=== PATIENT | male | born 1935 | race Caucasian/White ===

== ENCOUNTER 2018-05-21 08:24 | Inpatient (IN) | payer MEDICAID, OTHER ==
[2018-05-21] MEDS ORDERED: Albuterol-Ipratrop 3 mg / 0.5 (3 ml) UD IH STA (08:47)
--- NOTE | 2018-05-21 08:58 | ED PDOC ---
HPI: SOB/CHF/COPD Time Seen by Provider: 05/21/18 08:36 Chief Complaint (Nursing): Shortness Of Breath Chief Complaint (Provider): Shortness Of Breath History Per: Patient History/Exam Limitations: no limitations Onset/Duration Of Symptoms: Days (3) Additional Complaint(s): 83 years old male with history of hypertension presents to ER for evaluation of shortness of breath associated with cough and productive white sputum onset 3 days. Patient was recently in [facility], where he had workup including CT abdomen and chest that revealed mass ascending colon and metastatic disease of lungs. No treatment was initiated at that time. PMD: Paul Flowers Past Medical History Reviewed: Historical Data, Nursing Documentation, Vital Signs Vital Signs: Last Vital Signs Temp 98.5 F 05/21/18 08:32 Pulse 108 H 05/21/18 08:32 Resp 18 05/21/18 08:32 BP 114/75 05/21/18 08:32 Pulse Ox 96 05/21/18 08:32 - Medical History PMH: HTN - Surgical History Surgical History: No Surg Hx - Family History Family History: States: Unknown Family Hx - Immunization History Hx Tetanus Toxoid Vaccination: Yes Hx Influenza Vaccination: Yes Hx Pneumococcal Vaccination: Yes - Allergies Allergies/Adverse Reactions: Allergies Allergy/AdvReac Type Severity Reaction Status Date / Time No Known Allergies Allergy Verified 05/21/18 08:40 Review of Systems ROS Statement: Except As Marked, All Systems Reviewed And Found Negative Respiratory: Positive for: Cough, Shortness of Breath, Sputum (white) Physical Exam - Reviewed Nursing Documentation Reviewed: Yes Vital Signs Reviewed: Yes - Physical Exam Appears: Positive for: Non-toxic, No Acute Distress Head Exam: Positive for: ATRAUMATIC, NORMOCEPHALIC Skin: Positive for: Normal Color, Warm, Dry Cardiovascular/Chest: Positive for: Regular Rate, Rhythm, Tachycardia Respiratory: Positive for: Rhonchi (scattered bilaterally), Wheezing (mild expiratory). Negative for: Respiratory Distress Gastrointestinal/Abdominal: Positive for: Normal Exam, Soft. Negative for: Tenderness, Mass (palpable) Extremity: Positive for: Normal ROM, Pedal Edema (2+ lower bilateral). Negative for: Calf Tenderness Neurologic/Psych: Positive for: Alert, Oriented (x3) - Laboratory Results Result Diagrams: 05/21/18 08:55 05/21/18 08:55 - ECG O2 Sat by Pulse Oximetry: 96 (RA) Pulse Ox Interpretation: Normal Medical Decision Making Medical Decision Making: Time: 846 Initial Plan: --CMP --CBC --Chest X-Ray --Albuterol 3 ml IH --Peak flow pre/post treatment 946 Chest X-Ray FINDINGS: LUNGS: Multifocal nodular infiltrates identified bilaterally suspicious for marked pneumonitis. Underlying masses are not excluded and follow-up chest CT is adv ised when feasible. PLEURA: No significant pleural effusion identified. No pneumothorax apparent. CARDIOVASCULAR: Normal. OSSEOUS STRUCTURES: No significant abnormalities. VISUALIZED UPPER ABDOMEN: Normal. OTHER FINDINGS: None. IMPRESSION: Multifocal nodular infiltrates may reflect pneumonia. Underlying neoplasm is not excluded bilaterally in follow-up chest CT is advised with contrast for added characterization. 0950 --Duplex Lower Extremity Vein Bilateral US 1059 Extremity US FINDINGS: COMMON FEMORAL VEIN: Right CFV: Unremarkable. Left CFV: Unremarkable. SUPERFICIAL FEMORAL VEIN: Right SFV: Unremarkable. Left SFV: Unremarkable. POPLITEAL VEIN: Right Popliteal: Unremarkable. Left Popliteal: Unremarkable. POSTERIOR TIBIAL VEIN: Right PTV: Unremarkable. Left PTV: Unremarkable. OTHER FINDINGS: None. IMPRESSION: No evidence of deep venous thrombosis. 1110 --CT Chest With Contrast --------- Scribe Attestation: Documented by Tressa Villa, acting as a scribe for Av Hall MD. Provider Scribe Attestation: All medical record entries made by the Scribe were at my direction and personally dictated by me. I have reviewed the chart and agree that the record accurately reflects my personal performance of the history, physical exam, medical decision making, and the department course for this patient. I have also personally directed, reviewed, and agree with the discharge instructions and disposition. 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
[2018-05-21] MEDS ORDERED: Albuterol-Ipratrop 3 mg / 0.5 (3 ml) UD ONE (09:02)
[2018-05-21 09:09] LABS: BASO # 0.1 K/uL (0.0-0.2); BASO % 0.9 % (0.0-2.0); EOS # 0.2 K/uL (0.0-0.7); EOS % 2.1 % (0.0-4.0); HEMOGLOBIN 10.8 g/dL (12.0-18.0); LYMPH # 1.1 K/uL (1.0-4.3); LYMPH % 10.6 % (20.0-40.0); MEAN CORPUSCULAR HEMOGLOBIN 28.3 pg (27.0-31.0); MEAN CORPUSCULAR HGB CONC 32.5 g/dL (33.0-37.0); MEAN PLATELET VOLUME 9.2 fl (7.2-11.7); MONO # 0.6 K/uL (0.0-0.8); MONO % 6.2 % (0.0-10.0); NEUT # 8.1 K/uL (1.8-7.0); NEUT % 80.2 % (50.0-75.0); RBC 3.82 Mil/uL (4.40-5.90); WHITE BLOOD COUNT 10.1 K/uL (4.8-10.8)
[2018-05-21 09:17] LABS: ALBUMIN 3.2 g/dL (3.5-5.0); CALCIUM 9.4 mg/dL (8.4-10.2)
--- NOTE | 2018-05-21 09:52 | RAD ---
Date of service: 05/21/2018 HISTORY: SOB COMPARISON: No prior. TECHNIQUE: Chest PA and lateral FINDINGS: LUNGS: Multifocal nodular infiltrates identified bilaterally suspicious for marked pneumonitis. Underlying masses are not excluded and follow-up chest CT is advised when feasible. PLEURA: No significant pleural effusion identified. No pneumothorax apparent. CARDIOVASCULAR: Normal. OSSEOUS STRUCTURES: No significant abnormalities. VISUALIZED UPPER ABDOMEN: Normal. OTHER FINDINGS: None. IMPRESSION: Multifocal nodular infiltrates may reflect pneumonia. Underlying neoplasm is not excluded bilaterally in follow-up chest CT is advised with contrast for added characterization.
--- NOTE | 2018-05-21 11:25 | US ---
Date of service: 05/21/2018 PROCEDURE: Bilateral lower extremity venous duplex Doppler. HISTORY: swelling lower ext bilat COMPARISON: None available. TECHNIQUE: Bilateral common femoral, superficial femoral, popliteal and posterior tibial veins were evaluated. Flow was assessed with color Doppler, compressibility, assessment of phasic flow and augmentation response. FINDINGS: COMMON FEMORAL VEIN: Right CFV: Unremarkable. Left CFV: Unremarkable. SUPERFICIAL FEMORAL VEIN: Right SFV: Unremarkable. Left SFV: Unremarkable. POPLITEAL VEIN: Right Popliteal: Unremarkable. Left Popliteal: Unremarkable. POSTERIOR TIBIAL VEIN: Right PTV: Unremarkable. Left PTV: Unremarkable. OTHER FINDINGS: None. IMPRESSION: No evidence of deep venous thrombosis.
[2018-05-21] MEDS ORDERED: Sodium Chloride 0.9% 1,000 ML IV STA (12:08)
[2018-05-21] MEDS ORDERED: Iohexol 240 (50 ml) PO ONE (13:04)
--- NOTE | 2018-05-21 14:00 | CT ---
Date of service: 05/21/2018 PROCEDURE: CT Chest without contrast HISTORY: Metatstatic disesae COMPARISON: May 21, 2018 single-view chest TECHNIQUE: Contiguous axial images were obtained through the chest without intravenous contrast enhancement. Sagittal and coronal reconstructions were performed. Radiation dose (DLP): 196.87 mGy-cm. This CT exam was performed using one or more of the following dose reduction techniques: Automated exposure control, adjustment of the mA and/or kV according to patient size, and/or use of iterative reconstruction technique. FINDINGS: LUNGS: Innumerable pulmonary nodules, masses, confluent infiltrates. The preponderance of findings both by size and number reside in the lower lobes. Several of these in the upper lobes are cavitary. Metastatic disease the likely etiology. MEDIASTINUM: Unremarkable thoracic aorta. No aneurysm. Normal sized heart. Main pulmonary artery unremarkable. No vascular congestion. Mediastinal and hilar adenopathy. Hilar disease inseparable from central pulmonary masses. No discrete obstructing endobronchial lesion noted PLEURA: No pleural fluid. No pneumothorax. BONES: No fracture. No destructive lesion. UPPER ABDOMEN: Incompletely visualized periaortic and pericaval adenopathy. Indeterminate likely benign renal cortical and parapelvic cysts. Benign-appearing lesions in the liver. OTHER FINDINGS: None. IMPRESSION: Widely disseminated tumor masses in the lungs. The preponderance of masses are in the lower lungs. There are several cavitary lesions is well. Hilar, mediastinal and incompletely visualized upper abdominal/retroperitoneal adenopathy.
--- NOTE | 2018-05-21 14:38 | CP.PCM.HP ---
History of Present Illness - History of Present Illness History of Present Illness: shortness of breath Past Patient History - Past Social History Smoking Status: Never Smoked - CARDIAC Hx Cardiac Disorders: Yes - PULMONARY Hx Respiratory Disorders: Yes - PSYCHIATRIC Hx Substance Use: No - SURGICAL HISTORY Other/Comment: cataract surgery - ANESTHESIA Hx Anesthesia: Yes Meds Allergies/Adverse Reactions: Allergies Allergy/AdvReac Type Severity Reaction Status Date / Time No Known Allergies Allergy Verified 05/21/18 08:40 Results - Vital Signs Recent Vital Signs: Last Vital Signs Temp 97 F L 05/21/18 13:25 Pulse 78 05/21/18 13:25 Resp 19 05/21/18 13:25 BP 128/78 05/21/18 13:25 Pulse Ox 98 05/21/18 13:25 - Labs Result Diagrams: 05/21/18 08:55 05/21/18 08:55 Labs: Laboratory Results - last 24 hr 05/21/18 05/21/18 08:55 08:55 WBC 10.1 RBC 3.82 L Hgb 10.8 L Hct 33.2 L MCV 87.0 MCH 28.3 MCHC 32.5 L RDW 17.0 H Plt Count 419 H MPV 9.2 Neut % (Auto) 80.2 H Lymph % (Auto) 10.6 L [place] % (Auto) 6.2 Eos % (Auto) 2.1 Baso % (Auto) 0.9 Neut # (Auto) 8.1 H Lymph # (Auto) 1.1 [place] # (Auto) 0.6 Eos # (Auto) 0.2 Baso # (Auto) 0.1 Sodium 141 Potassium 4.5 Chloride 104 Carbon Dioxide 30 Anion Gap 12 BUN 61 H Creatinine 2.0 H Est GFR ( Amer) 39 Est GFR (Non-Af Amer) 32 Random Glucose 119 H Calcium 9.4 Total Bilirubin 0.2 AST 46 ALT 36 Alkaline Phosphatase 58 Total Protein 6.5 Albumin 3.2 L D Globulin 3.3 Albumin/Globulin Ratio 1.0 Assessment & Plan - Assessment and Plan (Free Text) Assessment: metastatic dz Plan: see h and p - Date & Time Date: 05/25/18 Time: 08:23
[2018-05-21] MEDS ORDERED: POLYETHYLENE GLYCOL 3350 17 GM/Dose PACKET PO PRN (14:45)
--- NOTE | 2018-05-21 15:16 | CARD ---
APPROVED REPORT Date of service: 05/21/2018 EKG Measurement Heart [id number] <Conclusion> Sinus tachycardia Otherwise normal ECG
[2018-05-21] MEDS: Albuterol-Ipratrop 3 mg / 0.5 (3 ml) UD INH SCH ×2 (15:19→19:03)
[2018-05-21] MEDS: Enoxaparin 30 mg Syringe SC SCH (17:12)
--- NOTE | 2018-05-21 18:03 | CT ---
Date of service: 05/21/2018 PROCEDURE: CT Abdomen and Pelvis without intravenous contrast HISTORY: Colonic mass COMPARISON: None. TECHNIQUE: Without contrast.. Contrast dose: 0 Radiation dose: Total exam DLP = 264.71 mGy-cm. This CT exam was performed using one or more of the following dose reduction techniques: Automated exposure control, adjustment of the mA and/or kV according to patient size, and/or use of iterative reconstruction technique. FINDINGS: LOWER THORAX: Widespread pulmonary metastasis in the visualized portions of the lungs. Areas of potential ellis consolidation in both lower lobes. Cannot rule out pneumonia. No pleural effusion. LIVER: Nonspecific 13 mm low-density mass in the medial segment left hepatic lobe. Nonspecific 20 mm mass in the lateral segment left hepatic lobe. No biliary dilatation. Smooth contour. GALLBLADDER AND BILE DUCTS: Unremarkable. PANCREAS: 3.5 cm mass abutting the inferior lateral aspect of the pancreatic head common nonspecific. This could be pancreatic in origin or may represent lymphadenopathy. There is generalized retroperitoneal lymphadenopathy as well. Unable to evaluate in the absence of intravenous contrast administration. SPLEEN: Unremarkable. ADRENALS: Unremarkable. No mass. KIDNEYS AND URETERS: Bilateral fluid density renal masses. Lower pole right kidney, 2.5 cm. Lower pole left kidney, 2.1 cm. Upper pole left kidney, 5.1 cm. Mild left hydronephrosis and proximal hydroureter. Point of obstruction not clearly delineated. No right hydronephrosis. VASCULATURE: Unremarkable. No aortic aneurysm. BOWEL: 10 cm circumferential neoplasm of the ascending colon/cecum. This traverses the serosal layer of the colon and extends in a pedunculated fashion into the pericolic fat. Pericolic lymph nodes are noted. Recommend further evaluation with colonoscopy. No other abnormal bowel loops are identified. No evidence of ellis bowel obstruction. APPENDIX: Not identified. PERITONEUM: Unremarkable. No free fluid. No free air. LYMPH NODES: Retroperitoneal and pelvic lymphadenopathy. BLADDER: Grossly normal. Suboptimally distended. REPRODUCTIVE: Normal prostate BONES: No acute fracture. OTHER FINDINGS: None. IMPRESSION: 10 cm neoplasm of the cecum/ascending colon with transmural extension, pericolic lymphadenopathy and associated retroperitoneal/pelvic lymphadenopathy. Left hydronephrosis and proximal hydroureter, possibly secondary to retroperitoneal tumor. No definite evidence of hepatic metastasis. Multifocal pulmonary metastases as well as areas of possible consolidation in both lower lobes, infectious versus neoplastic. Additional minor findings as above.
[2018-05-21] MEDS ORDERED: Promethazine DM 12.5 mg-30 mg/10 ml Syrup PO SCH (21:54)
--- NOTE | 2018-05-21 23:04 | HP ---
ADMITTING HISTORY AND PHYSICAL HISTORY OF PRESENT ILLNESS: Mr. Howard Julian is an 83-year-old male who was admitted via the emergency room because of shortness of breath for the past several months, worse on the day of admission. He also has an associated cough, which is dry in nature but occasionally produces whitish sputum. He denies chest pains, but indicates that he has had a problem with difficulty breathing for months and also has had a problem with constipation. He was evaluated in 08/2017 and had a chest x-ray done which shows what appears to be metastatic nodules throughout the lungs. He recently went to [place] about four months ago, spent four months there, was evaluated and advised that he probably has metastatic lung cancer, which originated from the colon, but workup was nonconclusive including colonoscopy, which did not yield adequate specimens. The so far has really given him the exact diagnosis and is keeping this as a secret from him because does not want him to know. He presently admits to feeling weak, frail, difficulty ambulating and also short of breath. PAST MEDICAL HISTORY: Remarkable for hypertension. FAMILY HISTORY: Noncontributory. SOCIAL HISTORY: He does not smoke or drink. Lives at home with his . REVIEW OF SYSTEMS: Essentially remarkable for generalized malaise, dry cough, and constipation. PHYSICAL EXAMINATION: GENERAL: The patient is frail looking, alert and oriented, indicating that he does not want any further workup. VITAL SIGNS: Blood pressure 114/75, pulse of 108, respiratory rate of 18. He is afebrile. O2 sat is 96% on room air. SKIN: Shows fair turgor. HEENT: Pupils are equal and reactive to light and accommodation. JVP flat. Mouth shows fair hygiene. LUNGS: Poor aeration bilaterally with dullness at the bases. HEART: S1 and S2, mild tachycardia. ABDOMEN: Soft. No tenderness appreciated. EXTREMITIES: Show no edema or cyanosis. CENTRAL NERVOUS SYSTEM: Grossly intact. LABORATORY DATA: Remarkable for chest x-ray and CT scan of the chest that shows multiple pulmonary nodules that are compatible with metastasis. Chest x-ray also confirms the findings on CAT scan. WBC 10.1, hemoglobin 10.8, platelet count of 419,000. Sodium 141, potassium 4.5, BUN 61, creatinine 2, calcium 9.4. IMPRESSION: Shortness of breath, probably secondary to metastatic lung nodules; history of colon mass; history of hypertension. PLAN: The case was discussed at length with the patient via an solar lab technician. He and his were advised of the findings on chest x-ray and CAT scan that is probably compatible with metastatic cancer to the lung and probable colon cancer. The patient does not want further intervention, but the is going to discuss this with the patient and family and they will make a decision. For now, we will give oxygen. We will obtain oncology and gastroenterology evaluations for further opinion. Prognosis is extremely guarded. Antoni Renner MD
[2018-05-21] MEDS: Promethazine DM 12.5 mg-30 mg/10 ml Syrup PO PRN (23:59)
[2018-05-22] MEDS: Albuterol-Ipratrop 3 mg / 0.5 (3 ml) UD INH SCH ×4 (08:15→19:35)
[2018-05-22] MEDS: Enoxaparin 30 mg Syringe SC SCH (09:08)
[2018-05-22] MEDS: Pantoprazole 40 mg EC Tab PO SCH (09:08)
--- NOTE | 2018-05-22 11:26 | CP.PCM.PN ---
Subjective - Date & Time of Evaluation Date of Evaluation: 05/22/18 Time of Evaluation: 11:30 - Subjective Subjective: STILL DYSPNEIC AT REST COUGHING UP BLOOD TINGED SPUTUM APPEARS VERY WEAK DOES NOT WANT FURTHER WORKUP OR MEDICAL INTERVENTION Objective - Vital Signs/Intake and Output Vital Signs (last 24 hours): Temp Pulse Resp BP Pulse Ox 98.3 F 99 H 18 124/76 94 L 05/22/18 07:44 05/22/18 07:44 05/22/18 07:44 05/22/18 07:44 05/22/18 07:44 - Medications Medications: Current Medications Albuterol/Ipratropium (Duoneb 3 Mg/0.5 Mg (3 Ml) Ud) 3 ml INH RQID [facility] Last Admin: 05/22/18 08:15 Dose: Not Given Atorvastatin Calcium (Lipitor) 40 mg PO HS [facility] Last Admin: 05/21/18 21:37 Dose: 40 mg Docusate Sodium (Colace) 100 mg PO BID [facility] Last Admin: 05/22/18 09:08 Dose: 100 mg Enoxaparin Sodium (Lovenox) 30 mg SC DAILY [facility]; Protocol Last Admin: 05/22/18 09:08 Dose: 30 mg Dextrose/Sodium Chloride (Dextrose 5%/0.45% Ns 1000 Ml) 1,000 mls @ 42 mls/hr IV .[id number] [facility] Stop: 05/23/18 11:22 Pantoprazole Sodium (Protonix Ec Tab) 40 mg PO DAILY [facility] Last Admin: 05/22/18 09:08 Dose: 40 mg Polyethylene Glycol (Miralax) 17 gm PO DAILY PRN PRN Reason: Constipation Promethazine HCl/Dextromethorphan (Phenergan Dm Syrup) 10 ml PO Q4 PRN PRN Reason: Cough Last Admin: 05/21/18 23:59 Dose: 10 ml - Labs Labs: 05/21/18 08:55 05/21/18 08:55 - Constitutional Appears: Chronically Ill - Head Exam Head Exam: ATRAUMATIC, NORMAL INSPECTION, NORMOCEPHALIC - Eye Exam Eye Exam: EOMI, Normal appearance, PERRL Pupil Exam: NORMAL ACCOMODATION, PERRL - ENT Exam ENT Exam: Mucous Membranes Moist, Normal Exam - Neck Exam Neck Exam: Full ROM, Normal Inspection. absent: Lymphadenopathy - Respiratory Exam Respiratory Exam: Decreased Breath Sounds, Prolonged Expiratory Phase, Rales - Cardiovascular Exam Cardiovascular Exam: REGULAR RHYTHM, +S1, +S2. absent: Murmur - GI/Abdominal Exam GI & Abdominal Exam: Soft, Normal Bowel Sounds. absent: Tenderness - Rectal Exam Rectal Exam: NORMAL INSPECTION - Extremities Exam Extremities Exam: Full ROM, Normal Capillary Refill, Normal Inspection. absent: Joint Swelling, Pedal Edema - Back Exam Back Exam: NORMAL INSPECTION - Neurological Exam Neurological Exam: Alert, Awake, CN II-XII Intact, Oriented x3 - Psychiatric Exam Psychiatric exam: Normal Affect, Normal Mood - Skin Skin Exam: Dry, Intact, Normal Color, Warm Assessment and Plan - Assessment and Plan (Free Text) Assessment: PROBABLE COLON CANCER CANCER WITH LUNG METS HEMOPTYSIS DUE TO METS Plan: FAMILY MEETING HELD WITH PT,HIS AND SON AND NURSE[FAWAD] THEY DECIDED ON SUPPORTIVE AND COMFORT CARE ONLY PT MADE A DNR ALL CONSULTS CANCELLED WILL ASK MACHINE PECAN PICKER TO ARRANGE DISPOSITION ON THURSDAY PROGNOSIS IS POOR
[2018-05-22] MEDS: Dextrose 5%/0.45% NS 1,000 ML IV SCH (11:57)
[2018-05-22] MEDS: Promethazine DM 12.5 mg-30 mg/10 ml Syrup PO PRN ×3 (12:40→21:14)
[2018-05-23] MEDS: Albuterol-Ipratrop 3 mg / 0.5 (3 ml) UD INH SCH ×4 (07:22→19:04)
[2018-05-23] MEDS: Enoxaparin 30 mg Syringe SC SCH (08:12)
[2018-05-23] MEDS: Pantoprazole 40 mg EC Tab PO SCH (08:12)
--- NOTE | 2018-05-23 10:59 | CP.PCM.PN ---
Subjective - Date & Time of Evaluation Date of Evaluation: 05/23/18 Time of Evaluation: 11:00 - Subjective Subjective: MORE COMFORTABLE TODAY ON VMASK O2 DAUGHTERS AT BEDSIDE AND CASE WAS DISCUSSED WITH THEM PT WILL MEET WITH COMPOSING MACHINE OPERATOR IN AM TO DISCUS DISPOSITION Objective - Vital Signs/Intake and Output Vital Signs (last 24 hours): Temp Pulse Resp BP Pulse Ox 97.9 F 107 H 19 131/82 95 05/23/18 08:07 05/23/18 08:07 05/23/18 08:07 05/23/18 08:07 05/23/18 08:07 - Medications Medications: Current Medications Albuterol/Ipratropium (Duoneb 3 Mg/0.5 Mg (3 Ml) Ud) 3 ml INH RQID [facility] Last Admin: 05/23/18 07:22 Dose: 3 ml Atorvastatin Calcium (Lipitor) 40 mg PO HS [facility] Last Admin: 05/22/18 21:05 Dose: 40 mg Docusate Sodium (Colace) 100 mg PO BID [facility] Last Admin: 05/23/18 08:12 Dose: 100 mg Enoxaparin Sodium (Lovenox) 30 mg SC DAILY [facility]; Protocol Last Admin: 05/23/18 08:12 Dose: 30 mg Dextrose/Sodium Chloride (Dextrose 5%/0.45% Ns 1000 Ml) 1,000 mls @ 42 mls/hr IV .[id number] [facility] Stop: 05/23/18 11:22 Last Admin: 05/22/18 11:57 Dose: 42 mls/hr Pantoprazole Sodium (Protonix Ec Tab) 40 mg PO DAILY [facility] Last Admin: 05/23/18 08:12 Dose: 40 mg Polyethylene Glycol (Miralax) 17 gm PO DAILY PRN PRN Reason: Constipation Promethazine HCl/Dextromethorphan (Phenergan Dm Syrup) 10 ml PO Q4 PRN PRN Reason: Cough Last Admin: 05/22/18 21:14 Dose: 10 ml - Labs Labs: 05/21/18 08:55 05/21/18 08:55 - Constitutional Appears: Chronically Ill - Head Exam Head Exam: ATRAUMATIC, NORMAL INSPECTION, NORMOCEPHALIC - Eye Exam Eye Exam: EOMI, Normal appearance, PERRL Pupil Exam: NORMAL ACCOMODATION, PERRL - ENT Exam ENT Exam: Mucous Membranes Moist, Normal Exam - Neck Exam Neck Exam: Full ROM, Normal Inspection. absent: Lymphadenopathy - Respiratory Exam Respiratory Exam: Decreased Breath Sounds, Rales - Cardiovascular Exam Cardiovascular Exam: REGULAR RHYTHM, +S1, +S2. absent: Murmur - GI/Abdominal Exam GI & Abdominal Exam: Soft, Normal Bowel Sounds. absent: Tenderness - Rectal Exam Rectal Exam: NORMAL INSPECTION - Extremities Exam Extremities Exam: Full ROM, Normal Capillary Refill, Normal Inspection. absent: Joint Swelling, Pedal Edema - Back Exam Back Exam: NORMAL INSPECTION - Neurological Exam Neurological Exam: Abnormal Gait, Alert, Awake, CN II-XII Intact, Oriented x3 - Psychiatric Exam Psychiatric exam: Flat Affect - Skin Skin Exam: Dry, Intact, Normal Color, Warm Assessment and Plan - Assessment and Plan (Free Text) Assessment: METASTATIC DZ GENERAL DEBILITY Plan: COMPOSING MACHINE OPERATOR FOR DISPOSITION IN AM SUPPORTIVE CARE
[2018-05-23] MEDS: Dextrose 5%/0.45% NS 1,000 ML IV SCH (11:56)
[2018-05-24] MEDS: Promethazine DM 12.5 mg-30 mg/10 ml Syrup PO PRN ×3 (00:46→15:00)
[2018-05-24] MEDS: Albuterol-Ipratrop 3 mg / 0.5 (3 ml) UD INH SCH ×4 (07:42→19:10)
[2018-05-24] MEDS: Pantoprazole 40 mg EC Tab PO SCH (08:05)
[2018-05-24] MEDS: Enoxaparin 30 mg Syringe SC SCH (08:05)
--- NOTE | 2018-05-24 09:01 | CP.PCM.PN ---
Subjective - Date & Time of Evaluation Date of Evaluation: 05/24/18 Time of Evaluation: 09:02 - Subjective Subjective: WEAK,STILL COUGHING Objective - Vital Signs/Intake and Output Vital Signs (last 24 hours): Temp Pulse Resp BP Pulse Ox 99.1 F 120 H 18 124/79 92 L 05/23/18 23:52 05/23/18 23:52 05/23/18 23:52 05/23/18 23:52 05/23/18 23:52 - Medications Medications: Current Medications Acetaminophen (Tylenol 325mg Tab) 650 mg PO Q4 PRN PRN Reason: Headache Last Admin: 05/24/18 08:54 Dose: 650 mg Albuterol/Ipratropium (Duoneb 3 Mg/0.5 Mg (3 Ml) Ud) 3 ml INH RQID [facility] Last Admin: 05/24/18 07:42 Dose: 3 ml Atorvastatin Calcium (Lipitor) 40 mg PO HS [facility] Last Admin: 05/23/18 21:09 Dose: 40 mg Docusate Sodium (Colace) 100 mg PO BID [facility] Last Admin: 05/24/18 08:04 Dose: 100 mg Enoxaparin Sodium (Lovenox) 30 mg SC DAILY [facility]; Protocol Last Admin: 05/24/18 08:05 Dose: 30 mg Pantoprazole Sodium (Protonix Ec Tab) 40 mg PO DAILY [facility] Last Admin: 05/24/18 08:05 Dose: 40 mg Polyethylene Glycol (Miralax) 17 gm PO DAILY PRN PRN Reason: Constipation Promethazine HCl/Dextromethorphan (Phenergan Dm Syrup) 10 ml PO Q4 PRN PRN Reason: Cough Last Admin: 05/24/18 00:46 Dose: 10 ml - Labs Labs: 05/21/18 08:55 05/21/18 08:55 - Constitutional Appears: Chronically Ill - Head Exam Head Exam: ATRAUMATIC, NORMAL INSPECTION, NORMOCEPHALIC - Eye Exam Eye Exam: EOMI, Normal appearance, PERRL Pupil Exam: NORMAL ACCOMODATION, PERRL - ENT Exam ENT Exam: Mucous Membranes Moist, Normal Exam - Neck Exam Neck Exam: Full ROM, Normal Inspection. absent: Lymphadenopathy - Respiratory Exam Respiratory Exam: Decreased Breath Sounds, Prolonged Expiratory Phase, Rales - Cardiovascular Exam Cardiovascular Exam: REGULAR RHYTHM, +S1, +S2. absent: Murmur - GI/Abdominal Exam GI & Abdominal Exam: Soft, Normal Bowel Sounds. absent: Tenderness - Rectal Exam Rectal Exam: NORMAL INSPECTION - Extremities Exam Extremities Exam: Full ROM, Normal Capillary Refill, Normal Inspection. absent: Joint Swelling, Pedal Edema - Back Exam Back Exam: NORMAL INSPECTION - Neurological Exam Neurological Exam: Alert, Awake, CN II-XII Intact, Normal Gait, Oriented x3 - Psychiatric Exam Psychiatric exam: Normal Affect, Normal Mood - Skin Skin Exam: Dry, Intact, Normal Color, Warm Assessment and Plan - Assessment and Plan (Free Text) Assessment: METASTATIC DISEASE[LUNG/COLON MASS] GENERAL DEBILITY ACUTE KIDNEY INJURY DEHYDRATION Plan: FRICTION SAW OPERATOR FOR DISPOSITION[HOSPICE CARE]
[2018-05-24 16:19] VITALS: BP 138/77; PULSE 110; RESP 18; TEMP 97.4; O2SAT 98
--- NOTE | 2018-05-25 08:50 | PQF ---
PROVIDER RESPONSE TEXT: L HYDRONEPHROSIS DUE TO TUMOR REVIEWER QUERY TEXT: Clinical Significance The diagnosis documented below requires documentation to state the clinical significance: CT ABDOMEN: Left hydronephrosis and proximal hydroureter, possibly secondary to retroperitoneal tumor Please respond and also state in your next progress note whether the conditions of L Hydronephrosis a nd Hydroureter are: : -- Clinically insignificant do not code -- Clinically significant, code the diagnosis and please also state why it is clinically significant -- Unable to determine clinical significance -- Other, please specify The patient's Clinical Indicators include: Admitted with SOB. Diagnoses include: Colon cancer , lung metastasis , dehydration, acute kidney inju ry BUN 61 , creatinine 2.0, GFR 32 Query created by: Ethel Muniz on 05/24/2018 10:53 AM Electronically signed by: Antoni Renner MD 05/25/2018 8:47 AM
--- NOTE | 2018-05-25 08:54 | CP.PCM.DIS ---
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 Status: Acute Hospital Course - Lab Results Lab Results: Micro Results 05/21/18 09:00 Sputum Gram Stain - Final 05/21/18 09:00 Sputum Sputum Culture - Final Most Recent Lab Values WBC 10.1 K/uL (4.8-10.8) 05/21/18 08:55 RBC 3.82 Mil/uL (4.40-5.90) L 05/21/18 08:55 Hgb 10.8 g/dL (12.0-18.0) L 10 08:55 Hct 33.2 % (35.0-51.0) L 05/21/18 08:55 MCV 87.0 fl (80.0-94.0) 05/21/18 08:55 MCH 28.3 pg (27.0-31.0) 05/21/18 08:55 MCHC 32.5 g/dL (33.0-37.0) L 05/21/18 08:55 RDW 17.0 % (11.5-14.5) H 05/21/18 08:55 Plt Count 419 K/uL (130-400) H 05/21/18 08:55 MPV 9.2 fl (7.2-11.7) 05/21/18 08:55 Neut % (Auto) 80.2 % (50.0-75.0) H 05/21/18 08:55 Lymph % (Auto) 10.6 % (20.0-40.0) L 05/21/18 08:55 Armstrong % (Auto) 6.2 % (0.0-10.0) 05/21/18 08:55 Eos % (Auto) 2.1 % (0.0-4.0) 05/21/18 08:55 Baso % (Auto) 0.9 % (0.0-2.0) 05/21/18 08:55 Neut # (Auto) 8.1 K/uL (1.8-7.0) H 05/21/18 08:55 Lymph # (Auto) 1.1 K/uL (1.0-4.3) 05/21/18 08:55 Armstrong # (Auto) 0.6 K/uL (0.0-0.8) 05/21/18 08:55 Eos # (Auto) 0.2 K/uL (0.0-0.7) 05/21/18 08:55 Baso # (Auto) 0.1 K/uL (0.0-0.2) 05/21/18 08:55 Sodium 141 mmol/l (132-148) 05/21/18 08:55 Potassium 4.5 MMOL/L (3.6-5.0) 05/21/18 08:55 Chloride 104 mmol/L (98-107) 05/21/18 08:55 Carbon Dioxide 30 mmol/L (22-30) 05/21/18 08:55 Anion Gap 12 (10-20) 05/21/18 08:55 BUN 61 mg/dl (9-20) H 05/21/18 08:55 Creatinine 2.0 mg/dl (0.8-1.5) H 05/21/18 08:55 Est GFR ( Amer) 39 05/21/18 08:55 Est GFR (Non-Af Amer) 32 05/21/18 08:55 Random Glucose 119 mg/dL (75-110) H 05/21/18 08:55 Calcium 9.4 mg/dL (8.4-10.2) 05/21/18 08:55 Total Bilirubin 0.2 mg/dl (0.2-1.3) 05/21/18 08:55 AST 46 U/L (17-59) 05/21/18 08:55 ALT 36 U/L (21-72) 05/21/18 08:55 Alkaline Phosphatase 58 U/L (38-126) 05/21/18 08:55 Total Protein 6.5 G/DL (6.3-8.2) 05/21/18 08:55 Albumin 3.2 g/dL (3.5-5.0) L D 05/21/18 08:55 Globulin 3.3 gm/dL (2.2-3.9) 05/21/18 08:55 Albumin/Globulin Ratio 1.0 (1.0-2.1) 05/21/18 08:55 - Hospital Course Hospital Course: DEBILITATED AND CHRONICALLY ILL Discharge Exam - Head Exam Head Exam: ATRAUMATIC, NORMAL INSPECTION, NORMOCEPHALIC - Eye Exam Eye Exam: EOMI, Normal appearance, PERRL Pupil Exam: NORMAL ACCOMODATION, PERRL - Respiratory Exam Respiratory Exam: Decreased Breath Sounds, Rales, Wheezes - GI/Abdominal Exam GI & Abdominal Exam: Normal Bowel Sounds - Rectal Exam Rectal Exam: NORMAL INSPECTION - Neurological Exam Neurological exam: Alert, CN II-XII Intact, Oriented x3, Reflexes Normal - Psychiatric Exam Psychiatric exam: Flat Affect - Skin Skin Exam: Dry, Intact, Normal Color, Warm Discharge Plan - Follow Up Plan Condition: FAIR Disposition: HOME/ ROUTINE Instructions: Colon and Rectal Cancer, Medical Care During Advanced Illness, Palliative Care Additional Instructions: [facility] Referrals: Paul Flowers MD [Family Provider] -
== END 2018-05-24 20:15 | disposition hospice, home (50) | DRG 541 ==
LOC: H.ER 08:24 → H.ERHOLD 12:07 → H.MEDSURG1 13:23
PROVIDERS: ADMIT Internal Medicine Pulmonary Disease; ATTEND Internal Medicine Pulmonary Disease
DX: C78.00 Secondary malignant neoplasm of unspecified lung (principal); N17.9 Acute kidney failure, unspecified; C18.9 Malignant neoplasm of colon, unspecified; N13.30 Unspecified hydronephrosis; E86.0 Dehydration; I10 Essential (primary) hypertension; R04.2 Hemoptysis; R54 Age-related physical debility; Z66 Do not resuscitate; Z51.5 Encounter for palliative care; K59.00 Constipation, unspecified